=== PATIENT | male | born 1940 | race Caucasian/White ===

== ENCOUNTER 2018-04-11 12:04 | Emergency (ER) | payer MEDICARE ==
[2018-04-11] MEDS ORDERED: Triple Antibiotic Oint 1 GM Packet ONE (12:46)
== END 2018-04-11 12:55 | disposition home or self-care (01) ==
LOC: MADERS 12:04
DX: M20.002 Unspecified deformity of left finger(s) (principal); I10 Essential (primary) hypertension; E78.00 Pure hypercholesterolemia, unspecified; E11.9 Type 2 diabetes mellitus without complications
CPT/HCPCS: 99283